=== PATIENT | female | born 1975 | race Caucasian/White ===

== ENCOUNTER 2018-09-16 14:38 | Observation (INO) ==
--- NOTE | 2018-09-16 15:21 | Emergency Department Note ---
Disposition Clinical Impression: Pyelonephritis Disposition: Admitted As Inpatient Condition: Good Referrals: [facility] [Outside] [facility] [Outside] Forms: ED Satisfaction Letter Time of Disposition: 17:35 General Adult HPI - General Chief complaint: ED Upper Respiratory Infection Stated complaint: Multiple complaints Time Seen by Provider: 09/16/18 15:07 Source: patient Limitations: no limitations Nursing Notes Reviewed: Yes Vital Signs Reviewed: Yes - History of Present Illness HPI Narrative: 42-year-old female smokes pack and a half otherwise healthy presents emergency department with not feeling well. States over the past 2 weeks she is has some chest congestion that has gradually developed to some palpitations, chest discomfort shortness of breath past 2 days. She feels tired and exhausted. She had a call off yesterday due to her symptoms. She also noted last night when she was laying down her heart was racing and she checked it to be almost 110. He felt like he was racing but not skipping any beats. She has been feeling chills but no fevers. On arrival here she rely she had a fever. She has been experiencing a mild headache that she is not taken anything for. She has not had much of an appetite and therefore has had decrease urine output. Denies any diarrhea recent travel. No sick contacts. She just finished her menstrual period. She is not sexually active. History of appendectomy. She has been extremely stressed as she is going through divorce. She states approximately 6 pound weight loss over the past 6 months. Pain Scale: 6 - Related Data Allergies Allergy/AdvReac Type Severity Reaction Status Date / Time No Known Allergies Allergy Verified 09/16/18 15:35 All systems ED: reviewed and negative except as stated. Review of Systems: As Per HPI Constitutional: Reports: fever, chills, weakness, weight change ENT ED: Reports: congestion Cardiovascular: Reports: chest pain, palpitations. Denies: dyspnea on exertion, syncope Respiratory: Reports: dyspnea. Denies: cough Gastrointestinal: Denies: abdominal pain, nausea, vomiting, diarrhea Genitourinary: Denies: dysuria, frequency Integumentary: Denies: rash, abrasion Neurological: Reports: headache, weakness. Denies: numbness, confusion Endocrine: Reports: fatigue Past Medical History - Past Medical History Attestation: Yes The following information was validated with the patient. Source: patient Medical history: Reports: no medical history Psychiatric history: Reports: anxiety - Social History Smoking Status: Current every day smoker Alcohol use: Reports: none Drug use: Reports: none Physical Exam - General Limitations: no limitations General appearance: alert, in no apparent distress - Head Head exam: atraumatic, normocephalic, normal inspection - Eye Eye exam: Present: normal appearance, PERRL, EOMI. Absent: nystagmus - ENT ENT exam: normal exam, normal oropharynx, mucous membranes moist, TM's normal bilaterally - Neck Neck exam: Present: normal inspection, full ROM, trachea midline. Absent: meningismus, thyromegaly - Chest Chest inspection: Present: normal inspection, symmetric chest wall rise. Absent: tenderness, rash - Respiratory Respiratory exam: Present: normal lung sounds bilaterally. Absent: respiratory distress, wheezes - Cardiovascular Cardiovascular exam: Present: normal rhythm, tachycardia, normal heart sounds - Expanded Cardiovascular Exam Peripheral pulses: 2+: radial (R), radial (L) - Abdominal Exam Abdominal exam: Present: soft, Non-Tender, normal bowel sounds. Absent: tenderness, distention, guarding, rebound, rigidity, Rausch's sign, tenderness at McBurney's Point Abdominal tenderness: Absent: RUQ, RLQ - Extremities Exam Extremities exam: Present: normal inspection, full ROM, normal capillary refill. Absent: tenderness, pedal edema - Back Exam Back exam: Present: normal inspection, full ROM, CVA tenderness (R). Absent: tenderness, CVA tenderness (L) - Neurological Exam Neurological exam: Present: alert, oriented X3 - Psychiatric Psychiatric exam: Present: normal affect, anxious - Skin Skin exam: Present: warm, dry, intact, normal color. Absent: rash, cyanosis, diaphoresis Course Course Narrative: Patient presents with fever tachycardia not feeling well for the past several days. She is febrile 103 and tachycardic. No sick contacts. History of smoking. Reports some palpitations and just overall discomfort. Sepsis workup including Tylenol for fever and headache. Presumed source is pulmonary given her symptoms. - Reevaluation(s) Reevaluation #1: Review of her labs shows a leukocytosis. Her urinalysis is quite consistent with infection. On physical exam she did have some right CVA tenderness. Given the fever she likely has pyelonephritis. Will plan for admission for pyelo. She is agreeable to this plan. Rocephin IV ordered. Blood cultures ordered on arrival. Impression is pyelo Time: 17:30 - Consultations Consultation #1: Spoke with on-call hospitalist shayla Crouch to admit for pyelo. No further orders at this time Time: 17:35 Vital Signs Temperature 103.0 F H 09/16/18 14:44 Pulse Rate 109 09/16/18 14:44 Respiratory Rate 20 09/16/18 14:44 Blood Pressure 128/75 09/16/18 14:44 O2 Sat by Pulse Oximetry 100 09/16/18 14:44 Temperature 100.9 F H 09/16/18 16:37 Pulse Rate 101 09/16/18 18:42 Respiratory Rate 24 09/16/18 18:42 Blood Pressure 106/69 09/16/18 18:42 O2 Sat by Pulse Oximetry 99 09/16/18 18:42 Oxygen Delivery Oxygen Delivery Room Air Medical Decision Making - MDM Narrative Medical decision making narrative: Patient was discussed with my attending physician who agrees with ED management and final disposition. They independently evaluated the patient. Please refer to their attestation to this encounter for additional information. This note was generated by @[employer] voice recognition software and as a result grammatical or spelling errors may occur using this program. - Medical Records Medical records reviewed: Yes I reviewed the patient's medical records. - Lab Data Lab results reviewed: Yes I reviewed the patient's lab results. Result diagrams: 09/16/18 15:36 09/16/18 15:36 Lab Results 09/16/18 09/16/18 09/16/18 Range/Units 15:36 15:36 15:36 WBC 16.7 H (4.3-11.1) K/mcL RBC 5.14 H (3.82-4.97) M/mcL Hgb 13.9 (11.5-15.4) g/dL Hct 44.1 (35.3-44.9) % MCV 85.8 (83.0-100.0) fL MCH 27.0 L (28.0-33.3) pg MCHC 31.5 L (31.6-35.5) g/dL RDW 14.0 (11.5-14.5) % Plt Count 208 (140-400) K/mcL MPV 11.0 (9.4-12.4) fL Immature Gran % 0.5 (0-4) % Seg Neutrophils % 78.7 % Lymphocytes % 9.0 % Monocytes % 11.4 % Eosinophils % 0.1 % Basophils % 0.3 % Neutrophils # 13.2 H (1.6-8.9) K/mcL Lymphocytes # 1.5 (0.6-4.6) K/mcL Monocytes # 1.9 H (0.0-1.3) K/mcL Eosinophils # 0.0 (0.0-0.6) K/mcL Basophils # 0.1 (0.0-0.2) K/mcL Sodium 136 (136-145) mEq/L Potassium 3.2 L (3.5-5.1) mEq/L Chloride 102 (98-107) mEq/L Carbon Dioxide 25 (23-29) mEq/L BUN 9 (6-20) mg/dL Creatinine 0.66 (0.60-1.20) mg/dL Est GFR ( Amer) > 60 (> 60) Est GFR (Non-Af Amer) > 60 (> 60) BUN/Creatinine Ratio 14 (6-26) Glucose 106 H (70-105) mg/dL Calculated Osmolality 281 (280-300) Lactic Acid 1.8 (0.5-2.2) mmol/L Calcium 9.1 (8.6-10.3) mg/dL Troponin I < 0.03 (< 0.04) ng/mL TSH (0.340-5.600) mcIU/mL Urine Color (Yellow) Urine Clarity (Clear) Urine pH (5.0-8.0) pH Units Ur Specific [place] (1.010-1.025) Urine Protein (Neg-Trace) mg/dL Urine Glucose (UA) (Normal) mg/dL Urine Ketones (Negative) mg/dL Urine Blood (Negative) Urine Nitrite (Negative) Urine Bilirubin (Negative) Urine Urobilinogen (Normal) mg/dL Ur Leukocyte Esterase (Negative) Urine Microscopic RBC (0-3) per hpf Urine Microscopic WBC (0-3) per hpf Ur Squamous Epith Cells (None-Few) per lpf Urine Bacteria (None-Few) per hpf Hyaline Casts (None-Few) per lpf Ur Culture Indicated? (NO) 09/16/18 09/16/18 Range/Units 15:36 16:20 WBC (4.3-11.1) K/mcL RBC (3.82-4.97) M/mcL Hgb (11.5-15.4) g/dL Hct (35.3-44.9) % MCV (83.0-100.0) fL MCH (28.0-33.3) pg MCHC (31.6-35.5) g/dL RDW (11.5-14.5) % Plt Count (140-400) K/mcL MPV (9.4-12.4) fL Immature Gran % (0-4) % Seg Neutrophils % % Lymphocytes % % Monocytes % % Eosinophils % % Basophils % % Neutrophils # (1.6-8.9) K/mcL Lymphocytes # (0.6-4.6) K/mcL Monocytes # (0.0-1.3) K/mcL Eosinophils # (0.0-0.6) K/mcL Basophils # (0.0-0.2) K/mcL Sodium (136-145) mEq/L Potassium (3.5-5.1) mEq/L Chloride (98-107) mEq/L Carbon Dioxide (23-29) mEq/L BUN (6-20) mg/dL Creatinine (0.60-1.20) mg/dL Est GFR ( Amer) (> 60) Est GFR (Non-Af Amer) (> 60) BUN/Creatinine Ratio (6-26) Glucose (70-105) mg/dL Calculated Osmolality (280-300) Lactic Acid (0.5-2.2) mmol/L Calcium (8.6-10.3) mg/dL Troponin I (< 0.04) ng/mL TSH 1.327 (0.340-5.600) mcIU/mL Urine Color Dark Yellow (Yellow) Urine Clarity Cloudy A (Clear) Urine pH 7.0 (5.0-8.0) pH Units Ur Specific [place] 1.019 (1.010-1.025) Urine Protein 100 H (Neg-Trace) mg/dL Urine Glucose (UA) Normal (Normal) mg/dL Urine Ketones Trace H (Negative) mg/dL Urine Blood Trace H (Negative) Urine Nitrite Positive A (Negative) Urine Bilirubin Small H (Negative) Urine Urobilinogen >=8.0 H (Normal) mg/dL Ur Leukocyte Esterase Moderate H (Negative) Urine Microscopic RBC 3-5 H (0-3) per hpf Urine Microscopic WBC 50-100 H (0-3) per hpf Ur Squamous Epith Cells Few (None-Few) per lpf Urine Bacteria Many H (None-Few) per hpf Hyaline Casts Moderate H (None-Few) per lpf Ur Culture Indicated? YES A (NO) - Radiology Data Radiology results reviewed: Yes I reviewed the patient's radiology results. Chest X-Ray 09/16/18 15:17 IMPRESSION: Mild interstitial prominence. No definite focal consolidation. D/ / Laxmi Escalona MD / Laxmi Escalona MD Interpreting Provider: Laxmi Escalona MD - EKG Data EKG #1 EKG attestation: Yes I reviewed and interpreted this EKG. EKG results narrative: EKG performed 1543 normal sinus rhythm 93 beats per minute, normal axis, occasional PVC, no ST elevation, nonspecific ST depression, short NC interval 84. No old EKG available for comparison at this time. No acute ischemic changes.
[2018-09-16 15:49] LABS: Basophils # 0.1 K/mcL (0.0-0.2); Basophils % 0.3 %; Eosinophils % 0.1 %; Hematocrit 44.1 % (35.3-44.9); Hemoglobin 13.9 g/dL (11.5-15.4); Immature Granulocytes % 0.5 % (0-4); Lymphocytes # 1.5 K/mcL (0.6-4.6); Mean Corpuscular HGB Conc 31.5 g/dL (31.6-35.5); Mean Corpuscular Volume 85.8 fL (83.0-100.0); Monocytes # 1.9 K/mcL (0.0-1.3); Monocytes % 11.4 %; Neutrophils # 13.2 K/mcL (1.6-8.9); Platelet Count 208 K/mcL (140-400); Red Blood Count 5.14 M/mcL (3.82-4.97); Segmented Neutrophils % 78.7 %; White Blood Count 16.7 K/mcL (4.3-11.1)
--- NOTE | 2018-09-16 16:08 | Emergency Department Note ---
Disposition Clinical Impression: Pyelonephritis Disposition: Admitted As Inpatient Condition: Good Referrals: [facility]erral [facility] [Outside] [facility] [Outside] Forms: ED Satisfaction Letter Time of Disposition: 17:35 General Adult HPI - General Chief complaint: ED Upper Respiratory Infection Stated complaint: Multiple complaints Time Seen by Provider: 09/16/18 15:07 Source: patient Limitations: no limitations - History of Present Illness Pain Scale: 6 - Related Data Allergies Allergy/AdvReac Type Severity Reaction Status Date / Time No Known Allergies Allergy Verified 09/16/18 15:35 Constitutional: Reports: fever, chills, weakness, weight change ENT ED: Reports: congestion Cardiovascular: Reports: chest pain, palpitations. Denies: dyspnea on exertion, syncope Respiratory: Reports: dyspnea. Denies: cough Gastrointestinal: Denies: abdominal pain, nausea, vomiting, diarrhea Genitourinary: Denies: dysuria, frequency Integumentary: Denies: rash, abrasion Neurological: Reports: headache, weakness. Denies: numbness, confusion Endocrine: Reports: fatigue Past Medical History - Past Medical History Medical history: Reports: no medical history Psychiatric history: Reports: anxiety - Social History Smoking Status: Current every day smoker Alcohol use: Reports: none Drug use: Reports: none Physical Exam - General Limitations: no limitations General appearance: alert, in no apparent distress Course Vital Signs Temperature 103.0 F H 09/16/18 14:44 Pulse Rate 109 09/16/18 14:44 Respiratory Rate 20 09/16/18 14:44 Blood Pressure 128/75 09/16/18 14:44 O2 Sat by Pulse Oximetry 100 09/16/18 14:44 Temperature 100.9 F H 09/16/18 16:37 Pulse Rate 108 09/16/18 16:37 Respiratory Rate 20 09/16/18 16:37 Blood Pressure 128/85 09/16/18 16:37 O2 Sat by Pulse Oximetry 100 09/16/18 16:37 Oxygen Delivery Oxygen Delivery Room Air Medical Decision Making - Lab Data Result diagrams: 09/16/18 15:36 09/16/18 15:36 Lab Results 09/16/18 09/16/18 09/16/18 Range/Units 15:36 15:36 15:36 WBC 16.7 H (4.3-11.1) K/mcL RBC 5.14 H (3.82-4.97) M/mcL Hgb 13.9 (11.5-15.4) g/dL Hct 44.1 (35.3-44.9) % MCV 85.8 (83.0-100.0) fL MCH 27.0 L (28.0-33.3) pg MCHC 31.5 L (31.6-35.5) g/dL RDW 14.0 (11.5-14.5) % Plt Count 208 (140-400) K/mcL MPV 11.0 (9.4-12.4) fL Immature Gran % 0.5 (0-4) % Seg Neutrophils % 78.7 % Lymphocytes % 9.0 % Monocytes % 11.4 % Eosinophils % 0.1 % Basophils % 0.3 % Neutrophils # 13.2 H (1.6-8.9) K/mcL Lymphocytes # 1.5 (0.6-4.6) K/mcL Monocytes # 1.9 H (0.0-1.3) K/mcL Eosinophils # 0.0 (0.0-0.6) K/mcL Basophils # 0.1 (0.0-0.2) K/mcL Sodium 136 (136-145) mEq/L Potassium 3.2 L (3.5-5.1) mEq/L Chloride 102 (98-107) mEq/L Carbon Dioxide 25 (23-29) mEq/L BUN 9 (6-20) mg/dL Creatinine 0.66 (0.60-1.20) mg/dL Est GFR ( Amer) > 60 (> 60) Est GFR (Non-Af Amer) > 60 (> 60) BUN/Creatinine Ratio 14 (6-26) Glucose 106 H (70-105) mg/dL Calculated Osmolality 281 (280-300) Lactic Acid 1.8 (0.5-2.2) mmol/L Calcium 9.1 (8.6-10.3) mg/dL Troponin I < 0.03 (< 0.04) ng/mL TSH (0.340-5.600) mcIU/mL Urine Color (Yellow) Urine Clarity (Clear) Urine pH (5.0-8.0) pH Units Ur Specific [place] (1.010-1.025) Urine Protein (Neg-Trace) mg/dL Urine Glucose (UA) (Normal) mg/dL Urine Ketones (Negative) mg/dL Urine Blood (Negative) Urine Nitrite (Negative) Urine Bilirubin (Negative) Urine Urobilinogen (Normal) mg/dL Ur Leukocyte Esterase (Negative) Urine Microscopic RBC (0-3) per hpf Urine Microscopic WBC (0-3) per hpf Ur Squamous Epith Cells (None-Few) per lpf Urine Bacteria (None-Few) per hpf Hyaline Casts (None-Few) per lpf Ur Culture Indicated? (NO) 09/16/18 09/16/18 Range/Units 15:36 16:20 WBC (4.3-11.1) K/mcL RBC (3.82-4.97) M/mcL Hgb (11.5-15.4) g/dL Hct (35.3-44.9) % MCV (83.0-100.0) fL MCH (28.0-33.3) pg MCHC (31.6-35.5) g/dL RDW (11.5-14.5) % Plt Count (140-400) K/mcL MPV (9.4-12.4) fL Immature Gran % (0-4) % Seg Neutrophils % % Lymphocytes % % Monocytes % % Eosinophils % % Basophils % % Neutrophils # (1.6-8.9) K/mcL Lymphocytes # (0.6-4.6) K/mcL Monocytes # (0.0-1.3) K/mcL Eosinophils # (0.0-0.6) K/mcL Basophils # (0.0-0.2) K/mcL Sodium (136-145) mEq/L Potassium (3.5-5.1) mEq/L Chloride (98-107) mEq/L Carbon Dioxide (23-29) mEq/L BUN (6-20) mg/dL Creatinine (0.60-1.20) mg/dL Est GFR ( Amer) (> 60) Est GFR (Non-Af Amer) (> 60) BUN/Creatinine Ratio (6-26) Glucose (70-105) mg/dL Calculated Osmolality (280-300) Lactic Acid (0.5-2.2) mmol/L Calcium (8.6-10.3) mg/dL Troponin I (< 0.04) ng/mL TSH 1.327 (0.340-5.600) mcIU/mL Urine Color Dark Yellow (Yellow) Urine Clarity Cloudy A (Clear) Urine pH 7.0 (5.0-8.0) pH Units Ur Specific [place] 1.019 (1.010-1.025) Urine Protein 100 H (Neg-Trace) mg/dL Urine Glucose (UA) Normal (Normal) mg/dL Urine Ketones Trace H (Negative) mg/dL Urine Blood Trace H (Negative) Urine Nitrite Positive A (Negative) Urine Bilirubin Small H (Negative) Urine Urobilinogen >=8.0 H (Normal) mg/dL Ur Leukocyte Esterase Moderate H (Negative) Urine Microscopic RBC 3-5 H (0-3) per hpf Urine Microscopic WBC 50-100 H (0-3) per hpf Ur Squamous Epith Cells Few (None-Few) per lpf Urine Bacteria Many H (None-Few) per hpf Hyaline Casts Moderate H (None-Few) per lpf Ur Culture Indicated? YES A (NO) Critical Care Time Critical Care Time: Yes Total Critical Care Time: 35 Attestation: Critical care performed: Time is exclusive of separately billable procedures. Time includes: direct patient care, patient reassessment, coordination of patient care, interpretation of data (laboratory data, radiology data, and respiratory data), review of patient's medical records, medical consultation and documentation of patient care. Procedures included in critical care time: Procedures excluded from critical care time: Attestation Statement - Attestation Attestation: I examined this patient and my medical decision-making was reviewed with the Resident Physician. I agree with the documented findings, disposition and treatment plan as described except to the extent set forth below. Patient presents to the ED with a chief complaint of cough and congestion. Onset 2 weeks ago. Palpitations. Now she feels generally weak. Smoker but is trying to quit. Denies any IV drug use. On exam she is tachycardia and febrile, but in no acute distress. Lungs are clear. Plan. Tachycardia, febrile, leukocytosis. Septic workup. Patient with UTI, flank pain, pyelonephritis. Meets sepsis criteria. IV Rocephin given. Admitted to medicine. EKG sinus tach. Reviewed with the resident
[2018-09-16 16:12] LABS: BUN/Creatinine Ratio 14 (6-26); Blood Urea Nitrogen 9 mg/dL (6-20); Calcium 9.1 mg/dL (8.6-10.3); Carbon Dioxide 25 mEq/L (23-29); Chloride 102 mEq/L (98-107); Glucose 106 mg/dL (70-105); Osmolality,Calculated 281 (280-300); Potassium 3.2 mEq/L (3.5-5.1); Sodium 136 mEq/L (136-145); Troponin I < 0.03 ng/mL (< 0.04); eGFR For African Americans > 60 (> 60); eGFR For Non-African Americans > 60 (> 60)
[2018-09-16] MEDS: 0.9 % Sodium Chloride 1,000 ML IVC SCH ×2 (16:36→18:35)
[2018-09-16 16:47] LABS: Bilirubin,Urine Small (Negative); Blood,Urine Trace (Negative); Clarity,Urine Cloudy (Clear); Color,Urine Dark Yellow (Yellow); Glucose,Urine (UA) Normal (Normal); Ketones,Urine Trace mg/dL (Negative); Leukocyte Esterase,Urine Moderate (Negative); Nitrite,Urine Positive (Negative); Protein,Urine 100 mg/dL (Neg-Trace); Specific Gravity,Urine 1.019 (1.010-1.025); Urobilinogen,Urine >=8.0 mg/dL (Normal)
[2018-09-16 16:49] LABS: Bacteria,Urine Many per hpf (None-Few); Hyaline Casts,Urine Moderate per lpf (None-Few); Squamous Epithelial Cell,Urine Few per lpf (None-Few); WBC,Urine 50-100 per hpf (0-3)
[2018-09-16] MEDS ORDERED: Ketorolac 15 MG/ML VIAL IVP ONE (17:29)
[2018-09-16] MEDS ORDERED: cefTRIAXone 1,000 MG in Water for inj. (sterile) 10 ML IVP ONE (17:35)
[2018-09-16] MEDS ORDERED: 0.9 % Sodium Chloride 1,000 ML IVC ONE (17:57)
[2018-09-16] MEDS ORDERED: Naloxone 0.4 MG/ML INJ IVP PRN (18:00)
--- NOTE | 2018-09-16 18:06 | Internal Med History&Physical ---
Date of Encounter: 09/16/18 Time of Encounter: 18:15 Internal Medicine - H&P: HPI Chief complaint: general unwellness Admitted From: Home Plans for Post Hospital Care: Home History of present illness: Ms. Lynch is a 42 year old female w pmhx of smoking and anxiety not treated with meds whom presented from home with 2 weeks general unwellness, worse in last 2 days. She had some mild congestion and cough with clear sputum in last two weeks. She then had her period and was having lower abd pain/cramping. In last two days she has been fatigued, had malaise, sweats and chills, nausea, poor appetite, right low back pain and palpitations. She assumed suprapubic pain was related to menstruation. Denies emesis, diarrhea. Palpitations have been intermittent and not associated with chest pain, pressure, sob, dizziness, or syncope. cardiac- no cp, pressure, tolliver, pnd, le edema, orthopnea; palpitations as above resp- cough with clear sputum, no wheezing, sob, tolliver, or hemoptysis gu- no hematuria (was menstruating but complete and no blood in urine), + cloudy urine, + right CVA pain, suprapubic cramping pain skin- no rashes, wound, or color changes neuro- has a mild pillai currently, feels as if her muscles are tense but does not have neck stiffness or rigidity with rom, no vision changes Past Med Surg Social Fam HX - Past Medical History Medical history: no medical history Psychiatric history: anxiety - Past Surgical History Surgical History: appendectomy Additional surgical history: cyst removed - Social History Smoking Status: Current every day smoker (4 cig/day) Alcohol use: occasionally Drug use: none Occupational status: employed Current living situation: Home - Independent Activity Level: Independent ambulation Recent Out of Country Travel Within the Last 8 Weeks: No - Family History Mother Living Status: Hx Family Cancer: Yes (lung ca) Father Living Status: Hx Family Cardiac Disorders: Yes - Additional Family History Additional family history: She denies family history of kidney disease Internal Medicine - H&P: Meds Allergy/AdvReac Type Severity Reaction Status Date / Time No Known Allergies Allergy Verified 09/16/18 15:35 All Systems PM: A 10-system review of systems was performed and is negative for pertinent findings except as documented above in the HPI. - Constitutional Vitals: Temp Pulse Resp BP Pulse Ox 100.9 F H 108 20 128/85 100 09/16/18 16:37 09/16/18 16:37 09/16/18 16:37 09/16/18 16:37 09/16/18 16:37 Exam: General: awake, alert, appears stated age HEENT:EOM intact, pupils equal, round, moist mucus membranes Neck: supple, trachea midline, rom intact and painless, no rigidity Cardiovascular: tachy rate 100s on bedside tele, and reg rhythm, normal S1 & S2, no rubs, murmurs or gallops. no lower extremity edema Lungs:Normal breath sounds, no wheezes, or crackles. Normal respiratory effort on room air Abdomen:Soft, non-tender, non-distended, no rigidity, + bowel sounds Extremities:No deformity, no edema or tenderness, no joint swelling Neurological: AAOx3, CN grossly intact Skin:Normal color, no rash, no pallor, no purpura or petechiae Internal Med - H&P Results - Labs CBC & Chem 7: 09/16/18 15:36 09/16/18 15:36 Labs: Short CBC 09/16/18 Range/Units 15:36 WBC 16.7 H (4.3-11.1) K/mcL Hgb 13.9 (11.5-15.4) g/dL Hct 44.1 (35.3-44.9) % Plt Count 208 (140-400) K/mcL Neutrophils # 13.2 H (1.6-8.9) K/mcL BMP 09/16/18 15:36 Sodium 136 Potassium 3.2 L Chloride 102 Carbon Dioxide 25 BUN 9 Creatinine 0.66 Glucose 106 H Calcium 9.1 Cardiac Enzymes 09/16/18 Range/Units 15:36 Troponin I < 0.03 (< 0.04) ng/mL Urine 09/16/18 Range/Units 16:20 Urine Color Dark Yellow (Yellow) Urine Clarity Cloudy A (Clear) Urine pH 7.0 (5.0-8.0) pH Units Ur Specific [place] 1.019 (1.010-1.025) Urine Protein 100 H (Neg-Trace) mg/dL Urine Glucose (UA) Normal (Normal) mg/dL - Impressions ITS Impressions Chest X-Ray 09/16/18 15:17 IMPRESSION: Mild interstitial prominence. No definite focal consolidation. D/ / Laxmi Escalona MD / Laxmi Escalona MD Interpreting Provider: Laxmi Escalona MD - Assessment and Plan (1) Sepsis Current Visit: Yes Status: Acute Assessment and plan: as evidenced by HR >90, fever 103, known infection of urine, lactate was wnl Suspected 2/2 Pyelonephritis with + UA s/p IVF boluses per sepsis protocol in ED CXR neg, no other identifiable sources of infection -bl and ucx pending, no prior ucxs -rocephin -MIVF at 100cc/hr Qualifiers: Sepsis type: sepsis due to unspecified organism Qualified Code(s): A41.9 - Sepsis, unspecified organism (2) Pyelonephritis Current Visit: Yes Status: Acute Assessment and plan: UA cloudy w proteinuria, ketones, blood, bilirubin + nitrite, moderate LE and many WBCs -rocephin, cxs as above -renal US -IVF (3) Sinus tachycardia Current Visit: Yes Status: Acute Assessment and plan: In setting of sepsis/fever EKG as per ED (could not find in ED and not yet in system) NSR, occassional PVCs no ischemic changes TSH wnl, trop neg -sepsis tx as above -prn tylenol for fevers -tele -PO Kcl (4) Hypokalemia Current Visit: Yes Status: Acute Assessment and plan: K 3.2 -40 meq PO Kcl -tele (5) Tobacco dependence Current Visit: Yes Status: Chronic Assessment and plan: smokes 4 cig/day declined patch/gum -cessation education provided
[2018-09-16] MEDS ORDERED: Nicotine 21 MG PATCH.TD24 TD SCH (18:15)
[2018-09-16] MEDS: Acetaminophen 325 MG TABLET PO PRN (20:33)
[2018-09-16] MEDS: Ringers Solution, Lactated 1,000 ML IVC SCH (20:34)
[2018-09-16] MEDS ORDERED: Ringers Solution, Lactated 500 ML IVC ONE (23:47)
[2018-09-17] MEDS: Ondansetron 4 MG/2 ML VIAL IVP PRN ×2 (00:22→09:55)
[2018-09-17] MEDS: Ibuprofen 600 MG TABLET PO PRN ×2 (01:30→22:03)
[2018-09-17 04:51] LABS: Basophils % 0.3 %; Eosinophils # 0.1 K/mcL (0.0-0.6); Eosinophils % 0.8 %; Hematocrit 35.6 % (35.3-44.9); Immature Granulocytes % 0.5 % (0-4); Lymphocytes # 1.5 K/mcL (0.6-4.6); Lymphocytes % 13.6 %; Mean Corpuscular HGB Conc 31.7 g/dL (31.6-35.5); Mean Corpuscular Hemoglobin 27.2 pg (28.0-33.3); Mean Corpuscular Volume 85.8 fL (83.0-100.0); Monocytes # 1.8 K/mcL (0.0-1.3); Neutrophils # 7.6 K/mcL (1.6-8.9); Platelet Count 172 K/mcL (140-400); Red Blood Count 4.15 M/mcL (3.82-4.97); Red Cell Distribution Width 14.1 % (11.5-14.5); Segmented Neutrophils % 68.8 %; White Blood Count 11.1 K/mcL (4.3-11.1)
[2018-09-17 04:55] LABS: Hemoglobin 11.3 g/dL (11.5-15.4)
[2018-09-17 05:01] LABS: BUN/Creatinine Ratio 18 (6-26); Blood Urea Nitrogen 10 mg/dL (6-20); Calcium 8.6 mg/dL (8.6-10.3); Carbon Dioxide 25 mEq/L (23-29); Chloride 110 mEq/L (98-107); Glucose 115 mg/dL (70-105); Magnesium 1.9 mg/dL (1.6-2.6); Osmolality,Calculated 290 (280-300); Potassium 3.9 mEq/L (3.5-5.1); Sodium 140 mEq/L (136-145); eGFR For African Americans > 60 (> 60); eGFR For Non-African Americans > 60 (> 60)
[2018-09-17] MEDS: Acetaminophen 325 MG TABLET PO PRN ×2 (05:17→17:25)
--- NOTE | 2018-09-17 09:11 | Internal Med Progress Note ---
<Lynda Cowart I - Last Filed: 09/17/18 14:58> Hospitalist Progress Note - Encounter Date of Encounter: 09/17/18 Time of Encounter: 09:15 - Subjective Interval History: Ms. Lynch is a 42 year old female w pmhx of smoking and anxiety amitted due to not feeling well for the last 2 weeks plus palpitations and right lower back pain for the last 2 days . today patient is seen and examined she was doing well , she feel she has more energy , no fever or chills , little nauseated but no vomiting . she still coughs but no wheezing, sob . - Exam Vitals: Temp Pulse Resp BP Pulse Ox 97.8 F 61 15 97/60 98 09/17/18 06:45 09/17/18 06:45 09/17/18 06:45 09/17/18 06:45 09/17/18 06:45 Exam: General: no acute distress , A&AX3 HEENT: Atraumatic, Normocephaly, sclera unicteric Neck: supple , Full ROM , trachea midline Cardiac: RRR , S1+. S2+ Lungs: Normal Breath Sounds Bilaterally, No Wheeze, Rales, Rhonchi back : positive right costophrenic angle tenderness Abdomen: Soft, Non-Tender ,no organomegaly , +bowel sounds Extremities: No Clubbing, No Cyanosis,or edema , Normal Pulses Skin : intact , Normal color Psychiatric : normal affect, normal mood Nuero : alert, normal gait, oriented X3 - Assessment and Plan (1) Sepsis Current Visit: Yes Status: Acute Assessment and Plan: she meets SIRS criteria HR >90, fever 103, known infection of urine Suspected 2/2 Pyelonephritis with + UA .. sepsis resolved now her vitals are stable , wbc with in normal limits we stopped her IVF as she is able to eat and the sepsis is resolved renal us : No evidence of hydronephrosis or intrarenal stones. patient is on day 2 IV Rocephin 2 blood cultures and urine culture is pending (2) Pyelonephritis Current Visit: Yes Status: Acute Assessment and Plan: is improving UA is positive for UTI , the urine is cloudy w + nitrite, moderate LE and many WBCs renal US : Kidneys demonstrate slightly to mildly increased cortical echogenicity. No evidence of hydronephrosis or intrarenal stones. patient on IV rocephin day 2 (3) Sinus tachycardia Current Visit: Yes Status: Acute Assessment and Plan: hear rate at admittion was 109 , now 67 EKG was normal , troponin is negative and TSH was within normal limits too , k withing normal limits tachycardia improved (4) Hypokalemia Current Visit: Yes Status: Acute Assessment and Plan: k at admition was 3.2 , today 3.9 . resolved (5) Tobacco dependence Current Visit: Yes Status: Chronic Assessment and Plan: smokes 4 cig/day declined patch/gum -cessation education provided - Time Spent with Patient Total time spent is greater than 50% in coordination of care (as documented) at patient's floor/unit and/or counseling patient: Internal Medicine: Result - Labs CBC & Chem 7: 09/17/18 04:15 09/17/18 04:15 Labs: Short CBC 09/16/18 09/17/18 Range/Units 15:36 04:15 WBC 16.7 H 11.1 (4.3-11.1) K/mcL Hgb 13.9 11.3 L D (11.5-15.4) g/dL Hct 44.1 35.6 (35.3-44.9) % Plt Count 208 172 (140-400) K/mcL Neutrophils # 13.2 H 7.6 (1.6-8.9) K/mcL BMP 09/16/18 09/17/18 15:36 04:15 Sodium 136 140 Potassium 3.2 L 3.9 Chloride 102 110 H Carbon Dioxide 25 25 BUN 9 10 Creatinine 0.66 0.57 L Glucose 106 H 115 H Calcium 9.1 8.6 Cardiac Enzymes 09/16/18 Range/Units 15:36 Troponin I < 0.03 (< 0.04) ng/mL Urine 09/16/18 Range/Units 16:20 Urine Color Dark Yellow (Yellow) Urine Clarity Cloudy A (Clear) Urine pH 7.0 (5.0-8.0) pH Units Ur Specific [place] 1.019 (1.010-1.025) Urine Protein 100 H (Neg-Trace) mg/dL Urine Glucose (UA) Normal (Normal) mg/dL - Impressions Impressions Chest X-Ray 09/16/18 15:17 IMPRESSION: Mild interstitial prominence. No definite focal consolidation. D/ / Laxmi Escalona MD / Laxmi Escalona MD Interpreting Provider: Laxmi Escalona MD Consult Discharge Plan - Plan Referrals: NONE,PCP [Primary Care Provider] - <ChristopherJolene Ricky - Last Filed: 09/17/18 15:19> Hospitalist Progress Note - Encounter Date of Encounter: 09/17/18 - Exam Vitals: Temp Pulse Resp BP Pulse Ox 99.7 F H 90 15 134/88 100 09/17/18 14:51 09/17/18 14:51 09/17/18 14:51 09/17/18 14:51 09/17/18 14:51 - Assessment and Plan (1) Sepsis Current Visit: Yes Status: Acute (2) Pyelonephritis Current Visit: Yes Status: Acute (3) Sinus tachycardia Current Visit: Yes Status: Acute (4) Hypokalemia Current Visit: Yes Status: Acute (5) Tobacco dependence Current Visit: Yes Status: Chronic - Time Spent with Patient Total time spent is greater than 50% in coordination of care (as documented) at patient's floor/unit and/or counseling patient: Internal Medicine: Result - Labs CBC & Chem 7: 09/17/18 04:15 09/17/18 04:15 Labs: Short CBC 09/16/18 09/17/18 Range/Units 15:36 04:15 WBC 16.7 H 11.1 (4.3-11.1) K/mcL Hgb 13.9 11.3 L D (11.5-15.4) g/dL Hct 44.1 35.6 (35.3-44.9) % Plt Count 208 172 (140-400) K/mcL Neutrophils # 13.2 H 7.6 (1.6-8.9) K/mcL BMP 09/16/18 09/17/18 15:36 04:15 Sodium 136 140 Potassium 3.2 L 3.9 Chloride 102 110 H Carbon Dioxide 25 25 BUN 9 10 Creatinine 0.66 0.57 L Glucose 106 H 115 H Calcium 9.1 8.6 Cardiac Enzymes 09/16/18 Range/Units 15:36 Troponin I < 0.03 (< 0.04) ng/mL Urine 09/16/18 Range/Units 16:20 Urine Color Dark Yellow (Yellow) Urine Clarity Cloudy A (Clear) Urine pH 7.0 (5.0-8.0) pH Units Ur Specific [place] 1.019 (1.010-1.025) Urine Protein 100 H (Neg-Trace) mg/dL Urine Glucose (UA) Normal (Normal) mg/dL - Impressions Impressions Chest X-Ray 09/16/18 15:17 IMPRESSION: Mild interstitial prominence. No definite focal consolidation. D/ / Laxmi Escalona MD / Laxmi Escalona MD Interpreting Provider: Laxmi Escalona MD Retroperitoneum Ultrasound 09/17/18 00:00 IMPRESSION: Slight to mild increased renal cortical echogenicity consistent with some degree of medical renal disease. Kidneys otherwise appear normal. Urinary bladder also appears normal. D/ / Cain Mccallum MD / Cain Mccallum MD Interpreting Provider: Cain Mccallum MD - Attending Attestation I examined this patient and my medical decision-making was reviewed with the Res ident Physician Dr Cowart. I agree with the documented findings, disposition and treatment plan as described except to the extent set forth below. Ms Lynch is being observed for sepsis and pyelonephritis awake, improved fatigue, mild nausea, + right cva tenderness, no abd pain. denies fevers or chills gen- alert, awake,appears stated age cv- reg rate and rhythm, normal s1,s2, no murmurs appreciated lungs- ctabl, no wheezing, rhonchi or crackles abd- soft, non tender, non distended, + bs neuro- AAOx3 sepsis 2/2 pyelonephritis- resolved suspected pyelopnephritis, org unknown- cont rocephin, awaiting bl and u cxs, renal US reviewed sinus tachycardia- resolved <Lynda Cowart I - Last Filed: 09/17/18 14:58> (1) Sepsis Qualifiers: Sepsis type: sepsis due to unspecified organism Qualified Code(s): A41.9 - Sepsis, unspecified organism <Jolene White M - Last Filed: 09/17/18 15:19> (1) Sepsis Qualifiers: Sepsis type: sepsis due to unspecified organism Qualified Code(s): A41.9 - Sepsis, unspecified organism
[2018-09-17] MEDS: Ringers Solution, Lactated 1,000 ML IVC SCH (12:33)
--- NOTE | 2018-09-17 12:42 | Electrocardiograph Report ---
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
[2018-09-17 16:14] LABS: Hematocrit 38.5 % (35.3-44.9); Hemoglobin 12.5 g/dL (11.5-15.4); Mean Corpuscular HGB Conc 32.5 g/dL (31.6-35.5); Mean Corpuscular Hemoglobin 27.8 pg (28.0-33.3); Mean Corpuscular Volume 85.6 fL (83.0-100.0); Mean Platelet Volume 11.4 fL (9.4-12.4); Platelet Count 205 K/mcL (140-400); Red Cell Distribution Width 14.2 % (11.5-14.5); White Blood Count 12.1 K/mcL (4.3-11.1)
[2018-09-17] MEDS: cefTRIAXone 1,000 MG in Water for inj. (sterile) 10 ML IVP SCH (17:25)
[2018-09-18 06:25] LABS: Hematocrit 35.8 % (35.3-44.9); Hemoglobin 11.4 g/dL (11.5-15.4); Mean Corpuscular HGB Conc 31.8 g/dL (31.6-35.5); Mean Corpuscular Hemoglobin 27.5 pg (28.0-33.3); Mean Corpuscular Volume 86.5 fL (83.0-100.0); Mean Platelet Volume 11.6 fL (9.4-12.4); Platelet Count 161 K/mcL (140-400); Red Blood Count 4.14 M/mcL (3.82-4.97); Red Cell Distribution Width 14.2 % (11.5-14.5); White Blood Count 9.3 K/mcL (4.3-11.1)
[2018-09-18 06:45] LABS: BUN/Creatinine Ratio 18 (6-26); Blood Urea Nitrogen 10 mg/dL (6-20); Calcium 8.6 mg/dL (8.6-10.3); Carbon Dioxide 25 mEq/L (23-29); Chloride 110 mEq/L (98-107); Glucose 87 mg/dL (70-105); Osmolality,Calculated 292 (280-300); Potassium 3.7 mEq/L (3.5-5.1); Sodium 142 mEq/L (136-145); eGFR For African Americans > 60 (> 60); eGFR For Non-African Americans > 60 (> 60)
--- NOTE | 2018-09-18 08:37 | Internal Med Progress Note ---
<ChristopherJolene García - Last Filed: 09/18/18 13:44> Hospitalist Progress Note - Encounter Date of Encounter: 09/18/18 - Exam Vitals: Temp Pulse Resp BP Pulse Ox 98.1 F 79 15 112/69 96 09/18/18 09:52 09/18/18 09:52 09/18/18 09:52 09/18/18 09:52 09/18/18 09:52 - Assessment and Plan (1) Sepsis Current Visit: Yes Status: Acute (2) Pyelonephritis Current Visit: Yes Status: Acute (3) Sinus tachycardia Current Visit: Yes Status: Acute (4) Hypokalemia Current Visit: Yes Status: Acute (5) Tobacco dependence Current Visit: Yes Status: Chronic - Time Spent with Patient Total time spent is greater than 50% in coordination of care (as documented) at patient's floor/unit and/or counseling patient: Internal Medicine: Result - Labs CBC & Chem 7: 09/18/18 06:10 09/18/18 06:10 Labs: Short CBC 09/17/18 09/18/18 Range/Units 15:33 06:10 WBC 12.1 H 9.3 (4.3-11.1) K/mcL Hgb 12.5 11.4 L (11.5-15.4) g/dL Hct 38.5 35.8 (35.3-44.9) % Plt Count 205 161 (140-400) K/mcL BMP 09/18/18 06:10 Sodium 142 Potassium 3.7 Chloride 110 H Carbon Dioxide 25 BUN 10 Creatinine 0.57 L Glucose 87 Calcium 8.6 - Impressions Impressions Retroperitoneum Ultrasound 09/17/18 00:00 IMPRESSION: Slight to mild increased renal cortical echogenicity consistent with some degree of medical renal disease. Kidneys otherwise appear normal. Urinary bladder also appears normal. D/ / Cain Mccallum MD / Cain Mccallum MD Interpreting Provider: Cain Mccallum MD Consult Discharge Plan - Plan Referrals: NONE,PCP [Primary Care Provider] - - Attending Attestation I examined this patient and my medical decision-making was reviewed with the Resident Physician Dr Bowers. I agree with the documented findings, disposition and treatment plan as described except to the extent set forth below. Ms Lynch is being observed for sepsis and pyelonephritis awake, no nausea or cva tenderness today, mild dysuria, fever last evening, denies chilss/sweats today gen- alert, awake,appears stated age cv- reg rate and rhythm, normal s1,s2 lungs- ctabl, normal reps effort on room air neuro- AAOx3 suspected pyelopnephritis, cx + gnr- cont rocephin, awaiting speciation/sensitivities fever- suspected 2/2 above- bl cxs ngtd, tx as above, abx changes pending cx finalization, clinically improved greatly dispo will be to home likely in next 24 hrs <Ciara Bowers - Last Filed: 09/18/18 18:27> Hospitalist Progress Note - Encounter Date of Encounter: 09/18/18 Time of Encounter: 09:30 - Subjective Interval History: Patient seen and examined at bedside. She denies fever, chills, dysuria, abdominal pain, back pain. She reports urinary symptoms have improved almost back to baseline. She has no complaints. - Exam Vitals: Temp Pulse Resp BP Pulse Ox 97.8 F 69 15 120/76 99 09/18/18 06:34 09/18/18 06:34 09/18/18 06:34 09/18/18 06:34 09/18/18 06:34 Exam: Gen.: Vitals noted. No acute distress. AAOx3 HEENT: oropharynx clear, Normocephalic, atraumatic Cardiac: RRR, no murmur, +S1/S2 Pulmonary: CTA bilaterally, no wheezes, rales or rhonchi, equal chest expansion Abdomen: soft, nontender, Bowel sounds noted, no guarding Back: Nontender throughout. Extremities: no BLE edema, nontender calf, no cyanosis or clubbing Psych: Appropriate mood and behavior - Assessment and Plan (1) Pyelonephritis Current Visit: Yes Status: Acute Assessment and Plan: Acute right-sided pyelonephritis -secondary to urinary tract infection. Patient denied history of urinary tract infections in past. She denied recent cystoscopy or catheter placement. -Urinalysis showing nitrite and leukocyte esterase, WBC -urine culture growing GNR -Retroperitoneal ultrasound showing slight mild increased renal cortical echogenicity consistent with some degree of medical renal disease. Kidneys and bladder unremarkable. -On exam patient no longer has right CVA tenderness today Plan -continue IV Rocephin -await urine culture sensitivity so antibiotics may be switch to oral and she made be discharged. This will likely occur tomorrow. -Continue monitor for fevers -Tylenol PRN pain and fever (2) Sepsis Current Visit: Yes Status: Acute Assessment and Plan: Resolved. On initial presentation patient was septic meeting 2 SIRS: tachycardia, fever 103. Patient was given IV fluids per sepsis protocol during admission -likely secondary to pyelonephritis -urinalysis concerning for urinary tract infection with nitrite and leukocyte, WBC -urine culture growing GNR -blood culture negative to date -Plan as above (3) Tobacco dependence Current Visit: Yes Status: Chronic Assessment and Plan: Patient is a current smoker. Smoking cessation counseling was offered. (4) Sinus tachycardia Current Visit: Yes Status: Acute Assessment and Plan: Resolved. This is in the setting of sepsis secondary to pyelonephritis. DVT Prophylaxis: SCD - Time Spent with Patient Total time spent is greater than 50% in coordination of care (as documented) at patient's floor/unit and/or counseling patient: Internal Medicine: Result - Labs CBC & Chem 7: 09/18/18 06:10 09/18/18 06:10 Labs: Short CBC 09/17/18 09/18/18 Range/Units 15:33 06:10 WBC 12.1 H 9.3 (4.3-11.1) K/mcL Hgb 12.5 11.4 L (11.5-15.4) g/dL Hct 38.5 35.8 (35.3-44.9) % Plt Count 205 161 (140-400) K/mcL BMP 09/18/18 06:10 Sodium 142 Potassium 3.7 Chloride 110 H Carbon Dioxide 25 BUN 10 Creatinine 0.57 L Glucose 87 Calcium 8.6 - Impressions Impressions Retroperitoneum Ultrasound 09/17/18 00:00 IMPRESSION: Slight to mild increased renal cortical echogenicity consistent with some degree of medical renal disease. Kidneys otherwise appear normal. Urinary bladder also appears normal. D/ / Cain Mccallum MD / Cain Mccallum MD Interpreting Provider: Cain Mccallum MD <Jolene White - Last Filed: 09/18/18 13:44> (1) Sepsis Qualifiers: Sepsis type: sepsis due to unspecified organism Qualified Code(s): A41.9 - Sepsis, unspecified organism <Ciara Bowers - Last Filed: 09/18/18 18:27> (2) Sepsis Qualifiers: Sepsis type: sepsis due to unspecified organism Qualified Code(s): A41.9 - Sepsis, unspecified organism
[2018-09-18] MEDS: cefTRIAXone 1,000 MG in Water for inj. (sterile) 10 ML IVP SCH (18:17)
[2018-09-19 06:49] VITALS: BP 114/79
[2018-09-19 07:56] LABS: Hematocrit 35.7 % (35.3-44.9); Hemoglobin 11.3 g/dL (11.5-15.4); Mean Corpuscular HGB Conc 31.7 g/dL (31.6-35.5); Mean Corpuscular Hemoglobin 26.5 pg (28.0-33.3); Mean Corpuscular Volume 83.8 fL (83.0-100.0); Mean Platelet Volume 12.4 fL (9.4-12.4); Platelet Count 224 K/mcL (140-400); Red Blood Count 4.26 M/mcL (3.82-4.97); Red Cell Distribution Width 14.2 % (11.5-14.5); White Blood Count 9.8 K/mcL (4.3-11.1)
--- NOTE | 2018-09-19 09:29 | Discharge Summary ---
- NOTES TO OUTPATIENT PROVIDER Notes to Outpatient Provider: Admitted for acute pyelonephritis. Completed treatment with Cipro for 7 days total of antibiotics. Orders not resulted at time of discharge: Pending orders 09/16/18 15:32 Culture,Blood [BC] Stat Date of Encounter: 09/19/18 Time of Encounter: 09:29 - Discharge Diagnosis (1) Pyelonephritis Priority: Secondary Status: Acute (2) Sepsis Priority: Primary Status: Acute Qualifiers: Sepsis type: sepsis due to unspecified organism Qualified Code(s): A41.9 - Sepsis, unspecified organism (3) Tobacco dependence Priority: Secondary Status: Chronic (4) Sinus tachycardia Priority: Secondary Status: Acute Hospital course: Ms. Lynch is a 42 year old female with past medical history of smoking anxiety presented complaining of feeling unwell along with abdominal cramping. Additionally she had fatigue, chills, sweats, nausea, right lower back pain, palpitations. She was admitted for acute right-sided pyelonephritis. She was started on IV Rocephin. On admission she did meet sepsis criteria, 2 SIRS: tachycardia, fever 103. Patient was given IV fluids per sepsis protocol during admission. Urinalysis showing nitrite and leukocyte esterase, WBC. Urine culture growing GNR, sharma sensitive. Retroperitoneal ultrasound showing slight mild increased renal cortical echogenicity consistent with some degree of medical renal disease. Kidneys and bladder unremarkable. On discharge the patient had no fever, chills, nausea, CVA tenderness, dysuria. She was discharged with ciprofloxacin and complete the 7 days of total antibiotic treatment. She was instructed to follow-up with a primary care provider in 1 to 2 weeks. Since she denied her primary care provider she was given follow-up in the residency clinic. She is alert and oriented times 3 and stated clear understanding the treatment plan. Discharge discussed with: patient, nurse Time spent discussing smoking cessation with patient: more than 10 minutes - Time Spent with Patient Total time spent providing and/or coordinating discharge services: - Discharge Medications Prescriptions: New Ciprofloxacin HCl [Cipro] 500 mg PO BID 4 Days #8 tablet Home Medications: Ciprofloxacin HCl [Cipro] 500 mg PO BID 4 Days #8 tablet 09/19/18 [Rx] Allergies/Adverse Reactions: Allergy/AdvReac Type Severity Reaction Status Date / Time No Known Allergies Allergy Verified 09/16/18 15:35 Date of admission: 09/16/18 19:12 Primary care physician: PCP NONE Discharging clinician: Jolene White Anticipated date of discharge: 09/19/18 - Constitutional Vitals: Temp Pulse Resp BP Pulse Ox 98.8 F 68 15 114/79 99 09/19/18 06:48 09/19/18 06:48 09/19/18 06:48 09/19/18 06:48 09/19/18 06:48 Exam: Gen.: Vitals noted. No acute distress. AAOx3 HEENT: oropharynx clear, Normocephalic, atraumatic Cardiac: RRR, no murmur, +S1/S2 Pulmonary: CTA bilaterally, no wheezes, rales or rhonchi, equal chest expansion Abdomen: soft, nontender, Bowel sounds noted, no guarding Back: Nontender throughout. Extremities: no BLE edema, nontender calf, no cyanosis or clubbing Psych: Appropriate mood and behavior - Patient Status Disposition: Home, Self-Care Condition: Good Functional capacity at discharge: independent ambulation Overall status at discharge: patient is back to baseline - Discharge Instructions Follow Up With: residency clinic [Other] Additional Instructions: - Finish antibiotic to completion -follow-up with her primary care provider in 1 to 2 weeks - Diet and Activity Activity: resume usual activities as tolerated Diet: regular diet
== END 2018-09-19 12:15 | disposition home or self-care (01) ==
LOC: EMEROOARM 14:38 → 3ANU 14:38 → SUATTDRO 19:12 → 3ANU 19:40
PROVIDERS: ADMIT Internal Medicine Nephrology; ATTEND Internal Medicine